=== PATIENT | male | born 2000 | race Caucasian/White ===

== ENCOUNTER 2020-11-21 17:20 | Emergency (ER) | payer OTHER ==
[~2020-11-21] VITALS: Ht 175.3 cm; Wt 60.9 kg
[2020-11-21] MEDS ORDERED: PRILOSEC 20MG20 MG PO (17:52)
[2020-11-21] MEDS ORDERED: CARAFATE 1GM1 G (17:53)
[2020-11-21] MEDS ORDERED: ZOFRAN 4MG T4 MG/TAB PO (17:55)
[2020-11-21 17:58] VITALS: TEMP 98.3
[2020-11-21 19:04] LABS: BASO # 0.1 (0.0-0.2); BASO % 0.8 % (0.0-2.0); EOS # 0.3 (0.0-0.7); EOS % 5.5 % (0-4.0); GRAN # 3.1 (1.4-6.5); GRAN % 51.9 % (42.2-75.2); HEMATOCRIT 41.8 % (36.0-47.0); HEMOGLOBIN 15.1 g/dl (12.5-16.1); LYMPH # 2.2 (1.2-3.4); LYMPH % 35.8 % (20.0-51.0); MEAN CELL VOLUME 88 fl (80.0-95.0); MEAN CORPUSCULAR HEMOGLOBIN 32 pg (26.0-32.0); MEAN CORPUSCULAR HGB CONC 36 g/dl (33.0-37.0); MEAN PLATELET VOLUME 9.3 fl (7.4-10.4); MONO # 0.4 (0.1-0.6); MONO % 5.8 % (1.7-9.3); PLATELET COUNT 236 K/mm3 (130-400); RED BLOOD COUNT 4.76 M/mm3 (4.20-5.60); REDCELL DISTRIBUTION WIDTH-CV 11.5 % (11.5-14.5)
[2020-11-21 19:13] LABS: ALBUMIN 4.6 gm/dL (3.5-5.0); BILIRUBIN,TOTAL 0.8 mg/dL (0.0-1.0); CREATININE, serum 0.92 (0.66-1.25); POTASSIUM 3.8 mmol/L (3.4-5.0); TOTAL PROTEIN 7.3 gm/dL (6.4-8.2)
[2020-11-21] MEDS ORDERED: ROXICODONE 55 MG/TAB PO (20:13)
[2020-11-21] MEDS ORDERED: LEVSIN 0.10.125 MG/T PO (20:13)
[2020-11-21 20:24] VITALS: BP 113/71; PULSE 61
== END 2020-11-21 20:29 | disposition home or self-care (01) ==
LOC: COL.ER 17:20
PROVIDERS: Physician Assistant
DX: K29.00 Acute gastritis without bleeding (principal); K21.9 Gastro-esophageal reflux disease without esophagitis; Z88.2 Allergy status to sulfonamides; Z88.6 Allergy status to analgesic agent
CPT/HCPCS: C9113; J2405; J7030